=== PATIENT | male | born 1970 | race African-American/Black ===

== ENCOUNTER 2024-05-15 15:42 | Emergency (ER) | payer OTHER ==
[~2024-05-15] VITALS: Ht 190.5 cm; Wt 83.9 kg
[~2024-05-15 15:42] MED LIST: IBUP600 PO; KETO10 PO; LORA2 PO; PROM25 PO; Veetids 500500 MG PO
[2024-05-15 16:14] VITALS: BP 138/117
== END 2024-05-15 16:17 | disposition home or self-care (01) ==
LOC: ER 15:42
DX: J06.9 Acute upper respiratory infection, unspecified (principal); F17.220 Nicotine dependence, chewing tobacco, uncomplicated
CPT/HCPCS: 99283